=== PATIENT | male | born 1995 | race Caucasian/White ===

== ENCOUNTER 2019-07-19 04:02 | Emergency (ER) | payer OTHER ==
[2019-07-19 04:09] VITALS: BP 133/87; PULSE 66
--- NOTE | 2019-07-19 04:36 | EDM.PDOC ---
ED HPI GENERAL MEDICAL PROBLEM - General Chief Complaint: Head Injury Stated Complaint: HEAD INJURY Time Seen by Provider: 07/19/19 04:25 Source of Information: Reports: Patient, Old Records ([facility] chart/EMR) History Limitations: Reports: No Limitations - History of Present Illness INITIAL COMMENTS - FREE TEXT/NARRATIVE: The patient was brought to the emergency room via transport vehicle from [facility] evaluation of a head contusion, which occurred at about 00:30 hours this morning. Note that the patient was working under a piece of equipment when he sat up hitting the posterior part of his head on a robot arm. The patient denies any change in mental status, loss of consciousness, paresthesias, neurological deficits, neck/back pain, etc. Immediately after the head contusion the patient began experiencing some dizziness and some mild nausea with light sensitivity and a 9/10 diffuse bilateral headache consistent with his migraine headaches. No recent history of abdominal pain, heartburn, emesis, diarrhea, melena, gross hematochezia, or any food intolerance, including fatty foods, etc..The patient also denies any recent fever, cough, wheezing, dyspnea, etc.. The patient did take 400 mg of ibuprofen at about 00:40 hours this morning after the above accident. Onset: Today, Sudden Onset Date: 07/19/19 Onset Time: 00:30 Duration: Constant, Getting Worse Location: Reports: Head. Denies: Face, Neck, Chest, Abdomen, Back, Pelvis, Upper Extremity, Left, Upper Extremity, Right, Radiates to Quality: Reports: Same as Previous Episode, Throbbing Severity: Severe Improves with: Reports: None Worsens with: Reports: None Context: Reports: Other (As above) Associated Symptoms: Reports: Headaches, Nausea/Vomiting (No emesis). Denies: Confusion, Chest Pain, Cough, Diaphoresis, Fever/Chills, Loss of Appetite, Malaise, Rash, Seizure, Shortness of Breath, Syncope, Weakness Treatments SENIOR BUYER: Reports: NSAIDS Headache Pain Score (Numeric/FACES): 9 - Related Data Allergies Allergy/AdvReac Type Severity Reaction Status Date / Time No Known Allergies Allergy Verified 07/19/19 04:09 Home Meds: Home Meds Cetirizine HCl [Zyrtec] 10 mg PO ASDIRECTED PRN 11/17/13 [History] Past Medical History HEENT History: Reports: Allergic Rhinitis. Denies: Impaired Vision Cardiovascular History: Reports: None Respiratory History: Reports: None Gastrointestinal History: Reports: GERD, PUD, Other (See Below) Other Gastrointestinal History: Gilbert syndrome. Genitourinary History: Reports: None Musculoskeletal History: Reports: Fracture, Other (See Below) Other Musculoskeletal History: Fracture of digit #1 of the left foot age 8. Neurological History: Reports: Concussion, Headaches, Chronic, Head Trauma, Migraines, Other (See Below) Other Neuro History: History of migraine headaches on a monthly basis with no previous workup for current medical therapy. History of at least 4 previous head concussions secondary to football injuries with last concussion on 12/26/09. Psychiatric History: Reports: None Endocrine/Metabolic History: Reports: Other (See Below) Other Endocrine/Metabolic History: Gynecomastia requiring surgery as below. Hematologic History: Reports: None. Denies: Blood Transfusion(s) Immunologic History: Reports: None Oncologic (Cancer) History: Reports: None Dermatologic History: Reports: Condyloma - Infectious Disease History Infectious Disease History: Reports: Chicken Pox. Denies: Shingles - Past Surgical History Male Surgical History: Reports: Other (See Below) Other Male Surgeries/Procedures: Bilateral partial breast revisions secondary to gynecomastia at age 17. - Past Imaging History Past Imaging History: Reports: None. Denies: CAT Scan, MRI Social & Family History - Tobacco Use Smoking Status *Q: Former Smoker Tobacco Use Within Last Twelve Months: No Years of Tobacco use: 4 Packs/Tins Daily: 0.2 Packs/Tins Daily Comment: Chewing tobacco about one can per week between ages 16 and 20. Used Tobacco, but Quit: Yes Smoking Cessation Information Provided To Patient: No Second Hand Smoke Exposure: No Second Hand Smoke Education Provided: No - Living Situation & Occupation Living situation: Reports: Single, Alone Occupation: Employed ([employer]) ED ROS GENERAL - Review of Systems Review Of Systems: Comprehensive ROS is negative, except as noted in HPI. ED EXAM, HEAD INJURY - Physical Exam Exam: See Below Exam Limited By: No Limitations General Appearance: Alert, WD/WN, No Apparent Distress, Anxious (Mild to moderate) Head: Scalp Tenderness (Minimal in superior mid occipital region). No: Scalp Lacerations, Scalp Swelling, Scalp Abrasions, Scalp Ecchymosis, Scalp Hematoma, Alberto's Sign, Sinus Tenderness, Facial Tenderness, Raccoon Eyes Nexus Criteria: No: Posterior, Midline Cervical Tenderness, Evidence of Intoxication, Altered Level of Consciousness, Focal Neurological Deficit, Painful Distraction Injuries Eyes: Bilateral Eye: EOMI, Normal Fundi, Normal Inspection (No vertigo or nystagmus), PERRL, Other (Mild to moderate photosensitivity) Ears: Normal External Exam, Normal Canal, Hearing Grossly Normal, Normal TMs Nose: Normal Inspection, Normal Mucousa, No Blood Throat/Mouth: Normal Inspection, Normal Lips, Normal Teeth, Normal Gums, Normal Oropharynx, Normal Voice, No Airway Compromise. No: Perioral Cyanosis Neck: Non-Tender, Full Range of Motion, Normal Alignment, Normal Inspection. No : Muscle Spasm Respiratory: No Respiratory Distress, Lungs Clear, Normal Breath Sounds, No Accessory Muscle Use, Chest Non-Tender. No: Pleural Rub, Retractions Cardiovascular: Normal Peripheral Pulses, Regular Rate, Rhythm, No Edema, No Gallop, No JVD, No Murmur, No Rub. No: Gallop/S3, Gallop/S4, Friction Rub GI/Abdominal Exam: Normal Bowel Sounds, Soft, Non-Tender, No Organomegaly, No Distention, No Abnormal Bruit, No Mass, Pelvis Stable. No: Guarding (Male) Exam: Deferred Rectal (Males) Exam: Deferred Back Exam: Normal Inspection, Full Range of Motion. No: CVA Tenderness (L), CVA Tenderness (R), Muscle Spasm Extremities: Normal Inspection, Normal Range of Motion, Non-Tender, No Pedal Edema, Normal Capillary Refill. No: Srinath's Sign Neurologic: No Motor/Sensory Deficits, Alert, Oriented x 3, Other (Negative Babinski's, finger to nose, and pronator rotation tests. No evidence of facial paresis, tongue deviation, orthostasis, etc.. Excellent reverse thought processes.). No: Normal Mood/Affect (Mild to moderate anxious affect with mild depressive component) Skin: Normal Color, Warm/Dry, Tattoo(s) (Multiple). No: Diaphoresis, Ecchymosis - Wisner Coma Score Best Eye Response (Phill): (4) Open Spontaneously Best Verbal Response (Phill): (5) Oriented Best Motor Response (Wisner): (6) Obeys Commands Phill Total: 15 Course - Vital Signs Last Recorded V/S: Last Vital Signs Temp 36.2 C 07/19/19 04:03 Pulse 66 07/19/19 04:03 Resp 16 07/19/19 04:03 BP 133/87 07/19/19 04:03 Pulse Ox Vital Signs - 24 hr 07/19/19 04:03 Temperature [ 36.2 C Temporal] Pulse, 66 Peripheral [ Right Pulse Oximetry] Respiratory 16 Rate Blood Pressure 133/87 [Right Upper Arm] - Orders/Labs/Meds Labs: None Meds: None - Radiology Interpretation Free Text/Narrative:: None Departure - Departure Time of Disposition: 05:08 Disposition: Home, Self-Care 01 Condition: Good Clinical Impression: Peptic reflux disease Contusion Qualifiers: Encounter type: initial encounter Contusion area: head Contusion of head detail : scalp Qualified Code(s): S00.03XA - Contusion of scalp, initial encounter Migraine headache Qualifiers: Migraine type: without aura Status migrainosus presence: without status migrainosus Intractability: not intractable Qualified Code(s): G43.009 - Migraine without aura, not intractable, without status migrainosus Allergic rhinitis Qualifiers: Allergic rhinitis trigger: pollen Allergic rhinitis seasonality: seasonal Qualified Code(s): J30.1 - Allergic rhinitis due to pollen - Discharge Information *PRESCRIPTION DRUG MONITORING PROGRAM REVIEWED*: Not Applicable *COPY OF PRESCRIPTION DRUG MONITORING REPORT IN PATIENT LELA: Not Applicable Instructions: Facial or Scalp Contusion, [id number], Head Injury, Adult, Easy -to-Read, Recurrent Migraine Headache, [id number] Forms: ED Department Discharge Additional Instructions: 1. Follow up with your regular provider in 3-5 days as needed, if symptoms persist. Bring these discharge instructions with you to that visit. 2. Tylenol 650 mg by mouth every 4 hours and/or OTC ibuprofen 2-3 tabs by mouth every 6 hours with food as directed./needed. You may stagger these medications for 48-72 hours only, which essentially means that you are receiving a pain medication about every 2 hours. 3. Head precautions as directed-see form. 4. Ice packs to head and neck, dark and quiet room, etc. as directed until headache resolves. 5. Discuss possible additional preventative medications for your headaches with your regular provider. Consider OTC magnesium oxide 400 mg every day as headache prevention with diarrhea precautions with this medicatiion as directed. Never initiate medications on your own, however, prior to discussing this with your regular provider. 6. Secondary to recurrent migraine headaches discuss with your regular provider obtaining a baseline CT of the head. 7. Immediately after this visit verify that your cellular telephone's voicemail has been activated and is empty. Also verify that your home telephone 's answering machine is operating properly and has space to receive messages. Note that it is sometimes necessary for us to be able to contact you at a later date to discuss your medical care. 8. Please remember that we are ALWAYS here for you and want to answer any questions you may have. Feel free to call the hospital any time and we call you back [place]. Sepsis Event Note - Evaluation Sepsis Screening Result: No Definite Risk - Focused Exam Vital Signs: Vital Signs Temp Pulse Resp BP 07/19/19 04:03 36.2 C 66 16 133/87 Date Exam was Performed: 07/19/19 Time Exam was Performed: 04:58 - Problem List & Annotations (1) Contusion SNOMED Code(s): 461433926 Code(s): T14.8XXA - OTHER INJURY OF UNSPECIFIED BODY REGION, INITIAL ENCOUNTER Status: Acute Priority: High Onset Date: 07/19/19 Annotation/ Comment:: Minor occipital head contusion with no direct evidence of a true head concussion. No neurological deficits, etc. with head precautions provided. Workmen's Compensation and [employer] work excuse forms were completed. Note likely exacerbation of patient's migraine headaches by the head contusion as above. Qualifiers: Encounter type: initial encounter Contusion area: head Contusion of head detail: scalp Qualified Code(s): S00.03XA - Contusion of scalp, initial encounter (2) Migraine headache SNOMED Code(s): 42239039 Code(s): G43.909 - MIGRAINE, UNSP, NOT INTRACTABLE, WITHOUT STATUS MIGRAINOSUS Status: Acute Priority: High Annotation/Comment:: Exacerbation of patient's migraine headaches, which occur on a monthly basis. Note previous history of multiple head concussions as above. CT scan of the head may be indicated by his regular provider, however this is not warranted today based on his Workmen's Compensation injury. Patient would likely benefit from migraine headache prophylaxis with possible anxiety component. Qualifiers: Migraine type: without aura Status migrainosus presence: without status migrainosus Intractability: not intractable Qualified Code(s): G43.009 - Migraine without aura, not intractable, without status migrainosus (3) Allergic rhinitis SNOMED Code(s): 11608386 Code(s): J30.9 - ALLERGIC RHINITIS, UNSPECIFIED Status: Acute Priority: Medium Annotation/Comment:: Stable by patient history with the patient apparently receiving IM Depo-Medrol injection about one month ago Qualifiers: Allergic rhinitis trigger: pollen Allergic rhinitis seasonality: seasonal Qualified Code(s): J30.1 - Allergic rhinitis due to pollen (4) Peptic reflux disease SNOMED Code(s): 182428918 Code(s): K21.9 - GASTRO-ESOPHAGEAL REFLUX DISEASE WITHOUT ESOPHAGITIS Status: Chronic Priority: Medium Annotation/Comment:: Stable by patient history - Problem List Review Problem List Initiated/Reviewed/Updated: Yes - Assessment/Plan Assessment:: As above Plan: As above. Extensive precautions were given to the patient, who is in agreement with the treatment plan. See Patient Instructions for further treatment and plan.
== END 2019-07-19 05:08 | disposition home or self-care (01) ==
LOC: LL.ED 04:02
DX: S00.03XA Contusion of scalp, initial encounter (principal); K27.9 Peptic ulcer, site unspecified, unspecified as acute or chronic, without hemorrhage or perforation; J30.2 Other seasonal allergic rhinitis; G43.009 Migraine without aura, not intractable, without status migrainosus; Z87.891 Personal history of nicotine dependence; W22.8XXA Striking against or struck by other objects, initial encounter
CPT/HCPCS: 99283

== ENCOUNTER 2023-12-28 13:55 | Emergency (ER) | payer BC, OTHER ==
[2023-12-28 14:18] VITALS: BP 125/88; PULSE 76
[2023-12-28] MEDS ORDERED: Sodium Chloride 0.9% 10 ML Syringe FLUSH PRN (14:23)
[2023-12-28 14:33] LABS: BASOPHILS ABSOLUTE AUTO 0.03 K/uL (0.00-0.20); BASOPHILS PERCENT AUTO 0.5 % (0.0-2.0); EOSINOPHILS ABSOLUTE AUTO 0.18 K/uL (0.00-0.50); EOSINOPHILS PERCENT AUTO 2.8 % (0.0-5.0); HEMATOCRIT 45.9 % (39.0-49.0); HEMOGLOBIN 15.7 g/dL (13.1-16.8); LYMPHOCYTES ABSOLUTE AUTO 2.06 K/uL (0.50-3.50); LYMPHOCYTES PERCENT AUTO 32.2 % (10.0-50.0); MEAN CORPUSCULAR HEMOGLOBIN 29.1 pg (28.2-33.3); MEAN CORPUSCULAR HGB CONC 34.2 g/dL (31.7-36.0); MEAN CORPUSCULAR VOLUME 85.2 fL (84.0-98.0); MONOCYTES ABSOLUTE AUTO 0.63 K/uL (0.00-1.00); MONOCYTES PERCENT AUTO 9.9 % (2.0-14.0); NEUTROPHILS ABSOLUTE AUTO 3.49 K/uL (1.40-7.00); NEUTROPHILS PERCENT AUTO 54.6 % (45.0-80.0); PLATELET COUNT,PLT 274 K/uL (150-350); RED BLOOD CELL COUNT 5.39 M/uL (4.33-5.41); RED CELL DISTRIBUTION WIDTH 12.9 % (11.2-14.1); WHITE BLOOD CELL COUNT,WBC 6.4 K/uL (4.0-10.2)
[2023-12-28 14:49] LABS: PROTHROMBIN TIME 10.4 SEC (9.0-11.1)
[2023-12-28 15:01] LABS: ALANINE AMINOTRANSFERASE,ALT 35 U/L (12-78); ALBUMIN 4.2 g/dL (3.4-5.0); ALKALINE PHOSPHATASE 80 IU/L (46-116); ANION GAP 7.6 meq/L (7-15); ASPARTATE AMNIOTRANSFERASE,AST 19 U/L (15-37); BILIRUBIN TOTAL 1.3 mg/dL (0.2-1.0); BLOOD UREA NITROGEN,BUN 12 mg/dL (7-18); CALCIUM 9.3 mg/dL (8.5-10.1); CARBON DIOXIDE,CO2 30.4 mmol/L (21.0-32.0); CHLORIDE,CL 102 mmol/L (98-107); CREATININE 1.14 mg/dL (0.51-1.17); GLUCOSE RANDOM 94 mg/dL (70-99); MAGNESIUM 1.9 mg/dL (1.8-2.4); PRO B-TYPE NATRIUR PEPT,BNPPRO 6 pg/mL (0-125); PROTEIN TOTAL,TP 7.7 g/dL (6.4-8.2); SODIUM,NA 140 mmol/L (136-145)
[2023-12-28 15:02] LABS: ESTIMATED GFR 89 mL/min (>=60)
[2023-12-28] MEDS: Lactated Ringers 1,000 ML IV ONE (16:00)
== END 2023-12-28 16:07 | disposition home or self-care (01) ==
LOC: LL.ED 13:55
DX: R55 Syncope and collapse (principal); R53.83 Other fatigue
CPT/HCPCS: 36415; 71046; 80053; 83735; 83880; 84484; 85025; 85379; 85610; 93005; 93010; 96360; 99284; 99284-25; J7120